=== PATIENT | female | born 1950 | race Caucasian/White ===

== ENCOUNTER 2016-10-16 08:04 | Emergency (ER) | payer OTHER ==
[2016-10-16 08:13] VITALS: BP 141/86; PULSE 99; TEMP 98.4; BMI 29.9
--- NOTE | 2016-10-16 09:20 | PDOC ---
History of Present Illness - General Chief Complaint: Pain Stated Complaint: PAIN Time Seen by Provider: 10/16/16 08:57 History Source: Patient Exam Limitations: No Limitations - History of Present Illness Initial Comments: This is a 66 yo female with h/o prior left-sided abdominal infection 4 years ago (Pt unsure what this diagnosis was), NIDDM (not on medication), and peptic ulcer disease who presents c/o two weeks of worsening constant left-sided abdominal pain which is worse in the left upper abdomen. She notes 10/10 pain which is worse when the area is palpated. It radiates to her left back and shoulder and worsens with walking or any movement. She states that this feels exactly like her prior abdominal infection, for which she had to be admitted for 5 days and received antibiotic therapy. She additionally notes recent chills , nausea, and dark stool (no black), and recent cough and sore throat. She denies any measured fever, diarrhea, new constipation, chest pain, shortness of breath, vaginal bleeding or discharge, or painful urination. The patient notes an adverse reaction to an antibiotic she took for the prior abdominal infection 4 years ago (headache), but she cannot remember what antibiotic it was. Past History - Past Medical History Allergies/Adverse Reactions: Allergies Allergy/AdvReac Type Severity Reaction Status Date / Time ciprofloxacin [From Cipro] Allergy Verified 10/16/16 08:10 ciprofloxacin HCl Allergy Verified 10/16/16 08:10 [From Cipro] levofloxacin [From Levaquin] Allergy Verified 10/16/16 08:10 metronidazole [From Flagyl] Allergy Verified 10/16/16 08:10 morphine Allergy Vomiting Verified 10/16/16 08:44 rifaximin [From Xifaxan] Allergy Verified 10/16/16 08:10 Home Medications: Ambulatory Orders Aspirin [ASA -] 81 mg PO DAILY 10/16/16 Famotidine [Pepcid] 20 mg PO BID PRN #20 tablet MDD 40 mg 10/16/16 Lisinopril [Zestril] 2.5 mg PO DAILY 10/16/16 Loratadine 10 mg PO DAILY 10/16/16 Omeprazole 20 mg PO DAILY 10/16/16 Pantoprazole Sodium [Protonix] 40 mg PO DAILY #10 tablet. MDD 40 mg 10/16/16 Simvastatin 20 mg PO HS 10/16/16 Anemia: No Asthma: No Cancer: No Cardiac Disorders: No CVA: No COPD: No CHF: No Dementia: No Diabetes: Yes GI Disorders: Yes (DIVERTICULITIS) Disorders: No HTN: No Hypercholesterolemia: Yes Liver Disease: No Suicide Attempt (Hx): No Seizures: No Thyroid Disease: No - Surgical History Abdominal Surgery: No Appendectomy: No Cardiac Surgery: No Cholecystectomy: No Lung Surgery: No Neurologic Surgery: No Orthopedic Surgery: No - Psycho/Social/Smoking Cessation Hx Anxiety: No Suicidal Ideation: No Smoking Status: No Smoking History: Never smoked Have you smoked in the past 12 months: No Number of Cigarettes Smoked Daily: 0 Hx Alcohol Use: No Drug/Substance Use Hx: No Substance Use Type: None Hx Substance Use Treatment: No Review of Systems - Review of Systems Able to Perform ROS?: Yes Constitutional: Yes: Chills. No: Fever, Unexplained wgt Loss HEENTM: Yes: Throat Pain. No: Nose Congestion Respiratory: Yes: Cough. No: Shortness of Breath Cardiac (ROS): No: Chest Pain, Palpitations ABD/GI: Yes: Constipated (per baseline, mild), Nausea, Other (abdominal pain). No: Diarrhea, Vomiting : No: Burning, Dysuria Musculoskeletal: Yes: Back Pain (right sided). No: Neck Pain Integumentary: No: Bruising, Rash Neurological: No: Headache, Numbness, Tingling, Weakness, Dizziness Endocrine: No: Unexplained Weight Gain, Unexplained Weight Loss *Physical Exam - Vital Signs Last Vital Signs Temp Pulse Resp BP Pulse Ox 98.4 F 99 H 20 141/86 97 10/16/16 08:05 10/16/16 08:05 10/16/16 08:05 10/16/16 08:05 10/16/16 08:05 ED Treatment Course - LABORATORY CBC & Chemistry Diagram: 10/16/16 10:13 10/16/16 10:13 *DC/Admit/Observation/Transfer Diagnosis at time of Disposition: Abdominal pain Qualifiers: Abdominal location: left upper quadrant Qualified Code(s): R10.12 - Left upper quadrant pain - Discharge Dispostion Disposition: HOME Condition at time of disposition: Stable Admit: No - Prescriptions Prescriptions: Famotidine [Pepcid] 20 mg PO BID PRN #20 tablet MDD 40 mg PRN Reason: Indigestion Pantoprazole Sodium [Protonix] 40 mg PO DAILY #10 tablet.dr [place] 40 mg - Patient Instructions Printed Discharge Instructions: DI for Abdominal Pain-Adult Additional Instructions: You were seen today for left abdominal pain. We gave you a medication called Toradol though the IV which helped with your pain. We also did laboratory studies on blood and urine, which were not concerning. We also did an abdomen/ pelvis CT scan which did not show any diverticulitis, kidney stones, or other problems within the abdomen. This is most likely a muscle sprain/strain, or maybe a nerve pain. Please follow up with your primary doctor regarding the MRI results for the study you had with him 3 weeks ago. Return to the ED for any further emergency complaints. Print Language: MALTESE - Attestations Physician Attestion: 10/16/16 12:50 I, Dr. Alka Perez, attest that this document has been prepared under my direction and personally reviewed by me in its entirety. I further attest, that it accurately reflects all work, treatment, procedures and medical decision -making performed by me.
[2016-10-16] MEDS ORDERED: ONDANSETRON 4 MG TABLET PO ONE (09:31)
[2016-10-16] MEDS ORDERED: SODIUM CHLORIDE 1,000 ML IV STA (09:31)
[2016-10-16] MEDS ORDERED: KETOROLAC TROMETHAMINE 30 MG/1 ML VIAL IVPUSH ONE (09:35)
[2016-10-16] MEDS ORDERED: ONDANSETRON 4 MG/2 ML VIAL ONE (10:17)
[2016-10-16] MEDS ORDERED: KETOROLAC TROMETHAMINE 30 MG/1 ML VIAL ONE (10:17)
[2016-10-16 10:45] LABS: BASOPHIL 0.9 % (0-2.0); EOSINOPHIL 1.9 % (0-4.5); MCH 30.1 pg (25.7-33.7); MCHC 33.5 g/dl (32.0-36.0); MEAN CELL VOLUME 89.7 fl (80-96); MEAN PLT VOLUME 9.2 fl (7.5-11.1); NEUTROPHILS 55.8 % (42.8-82.8); PLATELET COUNT 213 K/MM3 (134-434); RDW 14.3 % (11.6-15.6); WHITE BLOOD COUNT 6.3 K/mm3 (4.0-10.0)
--- NOTE | 2016-10-16 10:51 | PDOC ---
Attending Attestation - Resident Resident Name: Alka Perez - ED Attending Attestation I have performed the following: I have examined & evaluated the patient, The case was reviewed & discussed with the resident, I agree w/resident's findings & plan, Exceptions are as noted - HPI HPI: 10/16/16 10:49 66-year-old female with past medical history of hypertension, GERD, diverticulitis presents with left-sided abdominal pain for 2 weeks. Patient reports this is persistent pain and has associated nausea but denies fevers, diarrhea, dysuria. She reports that this feels exactly like her diverticulitis. - Physicial Exam PE: 10/16/16 10:50 GENERAL: Awake, alert, and fully oriented, in no acute distress. HEAD: No signs of trauma EYES: PERRLA, EOMI, sclera anicteric, conjunctiva clear ENT: Auricles normal inspection, hearing grossly normal, nares patent, oropharynx clear without exudates. NECK: Normal ROM, supple, no lymphadenopathy, JVD, or masses LUNGS: Breath sounds equal, clear to auscultation bilaterally. No wheezes, and no crackles HEART: Regular rate and rhythm, normal S1 and S2, no murmurs, rubs or gallops ABDOMEN: Soft, normoactive bowel sounds. No guarding, no rebound. No masses. TTP left mid abdomen. EXTREMITIES: Normal range of motion, no edema. No clubbing or cyanosis. No cords, erythema, or tenderness NEUROLOGICAL: Cranial nerves II through XII grossly intact. Normal speech, normal gait SKIN: Warm, Dry, normal turgor, no rashes or lesions noted. - Medical Decision Making 10/16/16 10:50 Vital Signs Temp Pulse Resp BP Pulse Ox 98.4 F 99 H 20 141/86 97 10/16/16 08:05 10/16/16 08:05 10/16/16 08:05 10/16/16 08:05 10/16/16 08:05 R/o diverticulitis. Labs, CT abdomen and pelvis, UA Pain control, IVF Reassess 10/16/16 12:43 CBC, BMP 10/16/16 10:13 10/16/16 10:13 CMP Sodium 140 mmol/L (136-145) 10/16/16 10:13 Potassium 4.6 mmol/L (3.5-5.1) 10/16/16 10:13 Chloride 107 mmol/L (98-107) 10/16/16 10:13 Carbon Dioxide 25 mmol/L (21-32) 10/16/16 10:13 Anion Gap 8 (8-16) 10/16/16 10:13 BUN 19 mg/dL (7-18) H D 10/16/16 10:13 Creatinine 0.9 mg/dL (0.55-1.02) D 10/16/16 10:13 Creat Clearance w eGFR > 60 (>60) 10/16/16 10:13 Random Glucose 107 mg/dL (74-106) H 10/16/16 10:13 Calcium 9.6 mg/dL (8.5-10.1) 10/16/16 10:13 Total Bilirubin 0.3 mg/dL (0.2-1.0) D 10/16/16 10:13 AST 14 U/L (15-37) L 10/16/16 10:13 ALT 46 U/L (12-78) 10/16/16 10:13 Alkaline Phosphatase 96 U/L (45-117) D 10/16/16 10:13 Troponin I < 0.02 ng/ml (0.00-0.05) 10/16/16 10:13 Total Protein 8.1 g/dl (6.4-8.2) 10/16/16 10:13 Albumin 4.1 g/dl (3.4-5.0) 10/16/16 10:13 Lipase 150 U/L (73-393) 10/16/16 10:13 CT and chest xray reviewed. No acute findings. Pt feels much better after GERD medications. Will treat as gastritis and have the patient follow up with her doctors.
[2016-10-16 10:59] LABS: INR 1.1 (0.82-1.09); PROTHROMBIN TIME (PATIENT) 12.1 SEC (9.98-11.88)
[2016-10-16 11:05] LABS: TROPONIN I < 0.02 ng/ml (0.00-0.05)
[2016-10-16 11:13] LABS: ALBUMIN 4.1 g/dl (3.4-5.0); ALK PHOS 96 U/L (45-117); ANION GAP 8 (8-16); BILIRUBIN,TOTAL 0.3 mg/dL (0.2-1.0); CALCIUM 9.6 mg/dL (8.5-10.1); CO2 25 mmol/L (21-32); CREATININE 0.9 mg/dL (0.55-1.02); GLUCOSE,RANDOM 107 mg/dL (74-106); SGOT/AST 14 U/L (15-37); SGPT/ALT 46 U/L (12-78); TOT PROT 8.1 g/dl (6.4-8.2)
--- NOTE | 2016-10-17 18:04 | EKG ---
Test Reason : Blood Pressure : / mmHG Vent. Rate : 072 BPM Atrial Rate : 072 BPM P-R Int : 158 ms QRS Dur : 090 ms QT Int : 412 ms P-R-T Axes : 060 -19 035 degrees QTc Int : 451 ms NORMAL SINUS RHYTHM RSR' OR QR PATTERN IN V1 SUGGESTS RIGHT VENTRICULAR CONDUCTION DELAY BORDERLINE ECG WHEN COMPARED WITH ECG OF 06-SEP-2011 06:23, CLINICAL CORRELATION IS RECOMMENDED Confirmed by LIDYA UP MD ([id number]) on 10/17/2016 6:03:43 PM Referred By: Confirmed By:LIDYA UP MD
== END 2016-10-16 13:33 | disposition home or self-care (01) ==
LOC: JER 08:04
PROC: 3E0333Z Introduction of Anti-inflammatory into Peripheral Vein, Percutaneous Approach (ICD-10-PCS; principal; 2016-10-16)
DX: R10.12 Left upper quadrant pain (principal)
CPT/HCPCS: 36415; 71010-TC; 74177-TC; 80053; 83690; 84484; 85025; 85610; 93005; 93010; 96374; 99283-25

== ENCOUNTER 2017-04-07 06:15 | Emergency (ER) | payer OTHER ==
[2017-04-07 06:28] VITALS: BMI 27.4
[2017-04-07] MEDS ORDERED: IBUPROFEN 400 MG TABLET (FP) PO ONE ×2 (10:02→10:06)
[2017-04-07] MEDS ORDERED: CYCLOBENZAPRINE HCL 10 MG TABLET (FP) PO ONE (10:23)
--- NOTE | 2017-04-07 10:25 | PDOC ---
History of Present Illness - General Chief Complaint: Back Pain Stated Complaint: PAIN Time Seen by Provider: 04/07/17 07:47 Past History - Past Medical History Allergies/Adverse Reactions: Allergies Allergy/AdvReac Type Severity Reaction Status Date / Time ciprofloxacin [From Cipro] Allergy Verified 04/07/17 06:27 ciprofloxacin HCl Allergy Verified 04/07/17 06:27 [From Cipro] levofloxacin [From Levaquin] Allergy Verified 04/07/17 06:27 metronidazole [From Flagyl] Allergy Verified 04/07/17 06:27 morphine Allergy Vomiting Verified 04/07/17 06:27 rifaximin [From Xifaxan] Allergy Verified 04/07/17 06:27 Home Medications: Ambulatory Orders Famotidine 20 mg PO DAILY 04/07/17 Lisinopril 5 mg PO DAILY 04/07/17 Saxagliptin HCl [Onglyza] 20 mg PO DAILY 04/07/17 Simvastatin 20 mg PO DAILY 04/07/17 Anemia: No Asthma: No Cancer: No Cardiac Disorders: No CVA: No COPD: No CHF: No Dementia: No Diabetes: Yes GI Disorders: Yes (DIVERTICULITIS) Disorders: No HTN: No Hypercholesterolemia: Yes Liver Disease: No Seizures: No Thyroid Disease: No - Surgical History Abdominal Surgery: No Appendectomy: No Cardiac Surgery: No Cholecystectomy: No Lung Surgery: No Neurologic Surgery: No Orthopedic Surgery: No - Immunization History Immunization Up to Date: Yes - Suicide/Smoking/Psychosocial Hx Smoking Status: No Smoking History: Never smoked Have you smoked in the past 12 months: No Number of Cigarettes Smoked Daily: 0 Information on smoking cessation initiated: No Hx Alcohol Use: No Drug/Substance Use Hx: No Substance Use Type: None Hx Substance Use Treatment: No *Physical Exam - Vital Signs Last Vital Signs Temp Pulse Resp BP Pulse Ox 97.6 F 89 20 127/77 98 04/07/17 06:27 04/07/17 06:27 04/07/17 06:27 04/07/17 06:27 04/07/17 06:27 *DC/Admit/Observation/Transfer - Referrals Referrals: Kelsie Lawrence [Primary Care Provider] - - Patient Instructions - Post Discharge Activity
--- NOTE | 2017-04-07 10:32 | PDOC ---
History of Present Illness - General Chief Complaint: Back Pain Stated Complaint: PAIN Time Seen by Provider: 04/07/17 07:47 - History of Present Illness Initial Comments: 04/07/17 10:27 The patient is a 66 year old female with a significant PMH of hypertension, GERD , diverticulitis, NIDDM, hyperlipidemia, and peptic ulcer disease who presents to the emergency department with lower back pain that began approximately three days ago. The patient states she was lifting her mom up from a fall and felt a "popping sound" in her lower back. The patient describes the lower back pain as constant and dull, radiating to the sides. The patient has tried excedrin for the pain with mild relief. The patient denies any weakness, numbness or tingling in the extremities. She denies urinary retention or incontinence. The patient denies chest pain, shortness of breath, headache and dizziness. Denies fever, chills, nausea, vomit, diarrhea and constipation. Denies dysuria, frequency, urgency and hematuria. Allergies: ciprofloxacin, levofloacin, metronidazole. Social history: No reported alcohol, drug, or cigarette use. PCP: Dr. Lawrence Past History - Past Medical History Allergies/Adverse Reactions: Allergies Allergy/AdvReac Type Severity Reaction Status Date / Time ciprofloxacin [From Cipro] Allergy Verified 04/07/17 06:27 ciprofloxacin HCl Allergy Verified 04/07/17 06:27 [From Cipro] levofloxacin [From Levaquin] Allergy Verified 04/07/17 06:27 metronidazole [From Flagyl] Allergy Verified 04/07/17 06:27 morphine Allergy Vomiting Verified 04/07/17 06:27 rifaximin [From Xifaxan] Allergy Verified 04/07/17 06:27 Home Medications: Ambulatory Orders Famotidine 20 mg PO DAILY 04/07/17 Lisinopril 5 mg PO DAILY 04/07/17 Saxagliptin HCl [Onglyza] 20 mg PO DAILY 04/07/17 Simvastatin 20 mg PO DAILY 04/07/17 Anemia: No Asthma: No Cancer: No Cardiac Disorders: No CVA: No COPD: No CHF: No Dementia: No Diabetes: Yes GI Disorders: Yes (DIVERTICULITIS) Disorders: No HTN: No Hypercholesterolemia: Yes Liver Disease: No Seizures: No Thyroid Disease: No - Surgical History Abdominal Surgery: No Appendectomy: No Cardiac Surgery: No Cholecystectomy: No Lung Surgery: No Neurologic Surgery: No Orthopedic Surgery: No - Immunization History Immunization Up to Date: Yes - Suicide/Smoking/Psychosocial Hx Smoking Status: No Smoking History: Never smoked Have you smoked in the past 12 months: No Number of Cigarettes Smoked Daily: 0 Information on smoking cessation initiated: No Hx Alcohol Use: No Drug/Substance Use Hx: No Substance Use Type: None Hx Substance Use Treatment: No Review of Systems - Review of Systems Comments:: 04/07/17 10:28 GENERAL/CONSTITUTIONAL: No fever or chills. No weakness. HEAD, EYES, EARS, NOSE AND THROAT: No change in vision. No ear pain or discharge. No sore throat. GASTROINTESTINAL: No nausea, vomiting, diarrhea or constipation. GENITOURINARY: No dysuria, frequency, or change in urination. CARDIOVASCULAR: No chest pain or shortness of breath. RESPIRATORY: No cough, wheezing, or hemoptysis. MUSCULOSKELETAL: (+) Lower back pain. No joint or muscle swelling or pain. No neck pain. SKIN: No rash NEUROLOGIC: No headache, vertigo, loss of consciousness, or change in strength/ sensation. ENDOCRINE: No increased thirst. No abnormal weight change. HEMATOLOGIC/LYMPHATIC: No anemia, easy bleeding, or history of blood clots. ALLERGIC/IMMUNOLOGIC: No hives or skin allergy. *Physical Exam - Vital Signs Last Vital Signs Temp Pulse Resp BP Pulse Ox 97.6 F 89 20 127/77 98 04/07/17 06:27 04/07/17 06:27 04/07/17 06:27 04/07/17 06:27 04/07/17 06:27 - Physical Exam Comments: 04/07/17 10:29 GENERAL: Awake, alert, and fully oriented, in no acute distress HEAD: No signs of trauma EYES: PERRLA, EOMI, sclera anicteric, conjunctiva clear ENT: Auricles normal inspection, hearing grossly normal, nares patent, oropharynx clear without exudates. Moist mucosa NECK: Normal ROM, supple, no lymphadenopathy, JVD, or masses LUNGS: Breath sounds equal, clear to auscultation bilaterally. No wheezes, and no crackles HEART: Regular rate and rhythm, normal S1 and S2, no murmurs, rubs or gallops ABDOMEN: Soft, nontender, normoactive bowel sounds. No guarding, no rebound. No masses EXTREMITIES: Normal range of motion, no edema. No clubbing or cyanosis. No cords, erythema, or tenderness BACK: (+) Mild lumbar paraspinal tenderness b/l. No midline cervical, thoracic, lumbar ttp NEUROLOGICAL: Normal speech, cranial nerves intact, negative pronator drift, 5/ 5 strength in all 4 extremities, normal sensation to light touch in all 4 extremities, normal cerebellar exam, antalgic but steady gait, normal reflexes and tone SKIN: Warm, Dry, normal turgor, no rashes or lesions noted. ED Treatment Course - Medications Given in the ED: ED Medications Discontinued Medications Generic Name Dose Route Start Last Admin Trade Name Giovanna PRN Reason Stop Dose Admin Ibuprofen 800 mg 04/07/17 10:02 04/07/17 10:05 Motrin - PO 04/07/17 10:03 800 mg ONCE ONE Administration Medical Decision Making - Medical Decision Making 04/07/17 09:55 66-year-old female presents with low back pain after straining to sampler pickup her mother off of the floor 3 days ago. Vitals are unremarkable. Exam with lumbar paraspinal tenderness palpation consistent with muscle strain. Patient may have also herniated a disc but has no red flag signs of urinary retention or incontinence, and has a normal neurologic exam. Patient was given 800 mg of ibuprofen and Flexeril, will reassess. 04/07/17 10:34 Patient reports improvement in back pain and requests discharge home. Advised patient to follow up with her primary care doctor for possible physical therapy referral. He will return precautions if she develops any lower extremity weakness or numbness or has difficulty urinating. I discussed the physical exam findings, ancillary test results and final diagnoses with the patient. I answered all of the patient's questions. The patient was satisfied with the care received and felt comfortable with the discharge plan and treatment plan. The patient will call their primary care physician within 24 hours to arrange follow-up and will return to the Emergency Department with any new, persistent or worsening symptoms. *DC/Admit/Observation/Transfer Diagnosis at time of Disposition: Back pain - Discharge Dispostion Disposition: HOME Condition at time of disposition: Stable Admit: No - Referrals Referrals: Kelsie Lawrence [Primary Care Provider] - - Patient Instructions Printed Discharge Instructions: Low Back Pain Additional Instructions: Follow-up with Dr. Lawrence next week as discussed. Take medications as prescribed. Return to the emergency department if you have any new, worsening or concerning symptoms such as leg weakness/numbness or difficulty urinating. Print Language: [id number] - Post Discharge Activity - Attestations Physician Attestion: 04/07/17 10:37 I, Dr. Lindsey Chavarria MD, attest that this document has been prepared under my direction and personally reviewed by me in its entirety. I further attest, that it accurately reflects all work, treatment, procedures and medical decision -making performed by me.
[2017-04-07] MEDS ORDERED: CYCLOBENZAPRINE HCL 10 MG TABLET (FP) ONE (10:42)
[2017-04-07 11:05] VITALS: BP 115/74; PULSE 73; TEMP 97.8
== END 2017-04-07 11:12 | disposition home or self-care (01) ==
LOC: JER 06:15
DX: S39.012A Strain of muscle, fascia and tendon of lower back, initial encounter (principal); X50.0XXA Overexertion from strenuous movement or load, initial encounter; X50.9XXA Other and unspecified overexertion or strenuous movements or postures, initial encounter; Y93.F2 Activity, caregiving, lifting; Y92.038 Other place in apartment as the place of occurrence of the external cause; Y99.8 Other external cause status; I10 Essential (primary) hypertension; E11.9 Type 2 diabetes mellitus without complications; Z79.84 Long term (current) use of oral hypoglycemic drugs; K21.9 Gastro-esophageal reflux disease without esophagitis; E78.5 Hyperlipidemia, unspecified; K27.6 Chronic or unspecified peptic ulcer, site unspecified, with both hemorrhage and perforation
CPT/HCPCS: 99282-25

== ENCOUNTER 2021-04-02 09:44 | Observation (INO) | payer OTHER ==
[2021-04-02 09:49] VITALS: BMI 31.8
[2021-04-02] MEDS ORDERED: SODIUM CHLORIDE 0.9% 500 ML INFUS.BAG IV ONE (11:18)
[2021-04-02] MEDS ORDERED: ACETAMINOPHEN 1000 MG/100 ML BAG IVPB ONE (11:18)
[2021-04-02 11:46] LABS: BASO % 0.7 % (0-2.0); EOS % 1.2 % (0-4.5); HEMATOCRIT 42.4 % (32.4-45.2); HEMOGLOBIN 14.4 GM/dL (10.7-15.3); LYMPH % 29.8 % (8-40); MCHC 33.8 g/dl (32.0-36.0); MEAN CELL VOLUME 88.7 fl (80-96); MEAN PLT VOLUME 8.2 fl (7.5-11.1); MONO % 6.8 % (3.8-10.2); NEUT % 61.5 % (42.8-82.8); PLATELET COUNT 273 10^3/uL (134-434); RBC 4.78 M/mm3 (3.60-5.2); RDW 14.1 % (11.6-15.6); WHITE BLOOD COUNT 6.7 K/mm3 (4.0-10.0)
[2021-04-02 12:03] LABS: CHLORIDE 106 mmol/L (98-107); SODIUM 138 mmol/L (136-145)
[2021-04-02 12:06] LABS: ALBUMIN 4.1 g/dl (3.4-5.0); ANION GAP 9 MMOL/L (8-16); BLOOD UREA NITROGEN 24.2 mg/dL (7-18); CALCIUM 10.1 mg/dL (8.5-10.1); CO2 23 mmol/L (21-32); GLUCOSE,RANDOM 120 mg/dL (74-106); LIPASE 529 U/L (73-393)
[2021-04-02 12:09] LABS: CREATININE 1.4 mg/dL (0.55-1.3); SGOT/AST 11 U/L (15-37); SGPT/ALT 46 U/L (13-61)
[2021-04-02 12:11] LABS: BILIRUBIN,TOTAL 0.4 mg/dL (0.2-1); TOT PROT 8.2 g/dl (6.4-8.2)
[2021-04-02 12:12] LABS: ALK PHOS 99 U/L (45-117)
[2021-04-02 13:16] LABS: EPI CELLS 20 /uL (0-25.1); HYALINE CASTS 1 /uL (0-3.1); URINE APPEARANCE CLEAR; URINE BACTERIA 44 /uL (0-1359); URINE BILIRUBIN NEGATIVE (NEGATIVE); URINE COLOR YELLOW; URINE GLUCOSE (UA) NEGATIVE (NEGATIVE); URINE KETONE NEGATIVE (NEGATIVE); URINE LEUK ESTERASE NEGATIVE (NEGATIVE); URINE NITRITE NEGATIVE (NEGATIVE); URINE PROTEIN 1+ (NEGATIVE); URINE RBC 12 /uL (0-23.9); URINE UROBILINOGEN 0.2 mg/dL (0.2-1.0); URINE WBC 12 /uL (0-25.8)
[2021-04-02] MEDS ORDERED: SODIUM CHLORIDE 1,000 ML IV SCH (17:30)
[2021-04-02] MEDS ORDERED: TRIMETHOBENZAMIDE HCL 300 MG CAPSULE PO ONE (22:58)
[2021-04-02] MEDS ORDERED: MELATONIN 5 MG TABLETS PO ONE (22:59)
[2021-04-03] MEDS: LOSARTAN POTASSIUM 50 MG TABLET PO SCH (09:03)
[2021-04-03] MEDS: FAMOTIDINE 20 MG TABLET PO SCH (09:04)
[2021-04-03] MEDS: PANTOPRAZOLE 20 MG TABLET PO SCH (09:04)
[2021-04-03] MEDS ORDERED: ONDANSETRON 4 MG/2 ML VIAL IVPUSH PRN (09:15)
[2021-04-03] MEDS: EZETIMIBE 10 MG TABLET (FP) PO SCH (10:22)
[2021-04-03] MEDS: LIDOCAINE 5% TOPICAL PATCH TP SCH (11:25)
[2021-04-03] MEDS: INSULIN SLIDING SCALE (NOVOLOG) 1 VIAL SQ SCH ×3 (11:31→22:45)
[2021-04-03 13:26] LABS: HEMATOCRIT 38.5 % (32.4-45.2); HEMOGLOBIN 12.7 GM/dL (10.7-15.3); RBC 4.28 M/mm3 (3.60-5.2); WHITE BLOOD COUNT 5.6 K/mm3 (4.0-10.0)
[2021-04-03 13:27] LABS: BASO % 0.7 % (0-2.0); EOS % 1.7 % (0-4.5); LYMPH % 31.5 % (8-40); MCH 29.6 pg (25.7-33.7); MCHC 32.9 g/dl (32.0-36.0); MEAN PLT VOLUME 8.5 fl (7.5-11.1); MONO % 6.4 % (3.8-10.2); NEUT % 59.7 % (42.8-82.8); PLATELET COUNT 268 10^3/uL (134-434); RDW 13.7 % (11.6-15.6)
[2021-04-03 13:52] LABS: BLOOD UREA NITROGEN 18.8 mg/dL (7-18); CALCIUM 9.6 mg/dL (8.5-10.1)
[2021-04-03 13:53] LABS: ALBUMIN 3.6 g/dl (3.4-5.0); MAGNESIUM 1.9 mg/dL (1.8-2.4)
[2021-04-03 13:56] LABS: CREATININE 1.2 mg/dL (0.55-1.3)
[2021-04-03 13:57] LABS: BILIRUBIN,TOTAL 0.4 mg/dL (0.2-1); TOT PROT 7.2 g/dl (6.4-8.2)
[2021-04-03] MEDS ORDERED: SODIUM CHLORIDE 0.45% 1,000 ML IV SCH (17:30)
[2021-04-03] MEDS ORDERED: LIDOCAINE PATCH REMOVAL MC SCH (22:00)
[2021-04-04] MEDS: INSULIN SLIDING SCALE (NOVOLOG) 1 VIAL SQ SCH ×2 (06:33→11:01)
[2021-04-04] MEDS: FAMOTIDINE 20 MG TABLET PO SCH (09:43)
[2021-04-04] MEDS: PANTOPRAZOLE 20 MG TABLET PO SCH (09:43)
[2021-04-04] MEDS: EZETIMIBE 10 MG TABLET (FP) PO SCH (09:43)
[2021-04-04] MEDS: LOSARTAN POTASSIUM 50 MG TABLET PO SCH (09:44)
[2021-04-04] MEDS: LIDOCAINE 5% TOPICAL PATCH TP SCH (10:21)
[2021-04-04 10:37] VITALS: BP 138/68; PULSE 84; TEMP 98.4
[2021-04-04 10:46] LABS: BASO % 0.8 % (0-2.0); EOS % 1.9 % (0-4.5); HEMOGLOBIN 12.8 GM/dL (10.7-15.3); MCH 30.3 pg (25.7-33.7); MCHC 33.6 g/dl (32.0-36.0); MEAN CELL VOLUME 90.4 fl (80-96); MEAN PLT VOLUME 8.6 fl (7.5-11.1); MONO % 6.4 % (3.8-10.2); NEUT % 52.9 % (42.8-82.8); PLATELET COUNT 257 10^3/uL (134-434); RDW 13.7 % (11.6-15.6); WHITE BLOOD COUNT 5.6 K/mm3 (4.0-10.0)
[2021-04-04 11:08] LABS: ALBUMIN 3.7 g/dl (3.4-5.0); BLOOD UREA NITROGEN 19.2 mg/dL (7-18); CALCIUM 9.3 mg/dL (8.5-10.1); MAGNESIUM 1.8 mg/dL (1.8-2.4)
[2021-04-04 11:10] LABS: CREATININE 1.3 mg/dL (0.55-1.3)
[2021-04-04 11:12] LABS: BILIRUBIN,TOTAL 0.6 mg/dL (0.2-1); TOT PROT 7.3 g/dl (6.4-8.2)
== END 2021-04-04 13:10 | disposition home or self-care (01) ==
LOC: JER 09:44 → INTOOBSV 15:08 → UNDOADMOB 15:08 → JERBED 15:08 → J6WEST-2 21:38
PROVIDERS: ADMIT Internal Medicine; ATTEND Internal Medicine
PROC: 3E033NZ Introduction of Analgesics, Hypnotics, Sedatives into Peripheral Vein, Percutaneous Approach (ICD-10-PCS; principal; 2021-04-02)
PROC: 3E033GC Introduction of Other Therapeutic Substance into Peripheral Vein, Percutaneous Approach (ICD-10-PCS; 2021-04-02)
PROC: 3E0337Z Introduction of Electrolytic and Water Balance Substance into Peripheral Vein, Percutaneous Approach (ICD-10-PCS; 2021-04-02)
DX: I12.9 Hypertensive chronic kidney disease with stage 1 through stage 4 chronic kidney disease, or unspecified chronic kidney disease (principal); S32.040A Wedge compression fracture of fourth lumbar vertebra, initial encounter for closed fracture; E11.22 Type 2 diabetes mellitus with diabetic chronic kidney disease; N18.9 Chronic kidney disease, unspecified; R10.31 Right lower quadrant pain; E78.5 Hyperlipidemia, unspecified; K21.9 Gastro-esophageal reflux disease without esophagitis; K27.9 Peptic ulcer, site unspecified, unspecified as acute or chronic, without hemorrhage or perforation; Z29.9 Encounter for prophylactic measures, unspecified; Z88.8 Allergy status to other drugs, medicaments and biological substances; E66.9 Obesity, unspecified; Z68.31 Body mass index [BMI] 31.0-31.9, adult; I45.10 Unspecified right bundle-branch block; R79.89 Other specified abnormal findings of blood chemistry; N17.9 Acute kidney failure, unspecified; R80.9 Proteinuria, unspecified; W18.39XA Other fall on same level, initial encounter; Y93.89 Activity, other specified; Y92.89 Other specified places as the place of occurrence of the external cause
CPT/HCPCS: 36415; 74177-TC; 76775-TC; 80053; 81003; 82550; 82570; 82962; 83605; 83690; 83735; 83935; 84300; 84484; 85025; 87086; 93005; 93010; 96361; 96374; 96375; 97116-GP; 97161-GP; 99285-25; C9803; G0378; J0131; Q9967; U0003; U0005

== ENCOUNTER 2023-07-28 04:17 | Day surgery (SDC) | payer OTHER ==
[2023-07-26 15:51] VITALS: BMI 27.9
[2023-07-28 07:17] VITALS: RESP 18
[2023-07-28 08:22] VITALS: TEMP 97.8
[2023-07-28 09:02] VITALS: BP 124/70; PULSE 74
== END 2023-07-28 09:00 | disposition home or self-care (01) ==
LOC: JASU-ENDO 04:17
PROVIDERS: ATTEND Internal Medicine Gastroenterology
PROC: 0DB68ZX Excision of Stomach, Via Natural or Artificial Opening Endoscopic, Diagnostic (ICD-10-PCS; 2023-07-28)
PROC: 0DBL8ZX Excision of Transverse Colon, Via Natural or Artificial Opening Endoscopic, Diagnostic (ICD-10-PCS; principal; 2023-07-28 08:15)
DX: Z12.11 Encounter for screening for malignant neoplasm of colon (principal); K57.30 Diverticulosis of large intestine without perforation or abscess without bleeding; D12.3 Benign neoplasm of transverse colon; K64.8 Other hemorrhoids; Z86.010 Personal history of colon polyps; K29.50 Unspecified chronic gastritis without bleeding
CPT/HCPCS: 82962; 88305-TC; 88342-TC

== ENCOUNTER 2023-11-16 05:55 | Emergency (ER) | payer OTHER ==
[2023-11-16 06:42] VITALS: RESP 18; TEMP 98.4; BMI 27.8
[2023-11-16] MEDS ORDERED: ACETAMINOPHEN INJECTION 100 ML ONE (07:37)
[2023-11-16] MEDS ORDERED: FAMOTIDINE 20 MG/50 ML IVPB 20 MG/50 ML MG IVPB ONE (07:37)
[2023-11-16] MEDS ORDERED: ONDANSETRON 4 MG/2 ML VIAL ONE (07:37)
[2023-11-16 08:11] LABS: BASO % 0.8 % (0-2.0); EOS % 2.2 % (0-4.5); HEMATOCRIT 39.3 % (32.4-45.2); HEMOGLOBIN 13.2 GM/dL (10.7-15.3); LYMPH % 26.3 % (8-40); MCH 30.5 pg (25.7-33.7); MCHC 33.6 g/dl (32.0-36.0); MEAN CELL VOLUME 90.8 fl (80-96); MEAN PLT VOLUME 8.9 fl (7.5-11.1); MONO % 6.5 % (3.8-10.2); NEUT % 64.2 % (42.8-82.8); PLATELET COUNT 271 10^3/uL (134-434); RBC 4.33 M/mm3 (3.60-5.2); RDW 13.9 % (11.6-15.6); WHITE BLOOD COUNT 5.8 K/mm3 (4.0-10.0)
[2023-11-16] MEDS: SODIUM CHLORIDE 0.9% 500 ML INFUS.BAG IV ONE (08:13)
[2023-11-16] MEDS: ACETAMINOPHEN 1000 MG/100 ML BAG IVPB ONE (08:14)
[2023-11-16] MEDS: FAMOTIDINE 20 MG/50 ML IVPB 20 MG/50 ML MG IVPB ONE (08:14)
[2023-11-16] MEDS: ONDANSETRON 4 MG/2 ML VIAL IVPUSH ONE (08:14)
[2023-11-16 08:38] LABS: PH,URINE 5.5 (5.0-8.0); URINE APPEARANCE CLEAR; URINE BILIRUBIN NEGATIVE (NEGATIVE); URINE COLOR YELLOW; URINE GLUCOSE (UA) NEGATIVE (NEGATIVE); URINE KETONE NEGATIVE (NEGATIVE); URINE LEUK ESTERASE NEGATIVE (NEGATIVE); URINE NITRITE NEGATIVE (NEGATIVE); URINE PROTEIN NEGATIVE (NEGATIVE); URINE UROBILINOGEN 0.2 mg/dL (0.2-1.0)
[2023-11-16 08:43] LABS: POTASSIUM 4.8 mmol/L (3.5-5.1)
[2023-11-16 08:45] LABS: ALBUMIN 3.9 g/dl (3.4-5.0); BLOOD UREA NITROGEN 37.1 mg/dL (7-18)
[2023-11-16 08:48] LABS: CREATININE 1.9 mg/dL (0.55-1.3)
[2023-11-16 08:50] LABS: BILIRUBIN,TOTAL 0.4 mg/dL (0.2-1); TOT PROT 7.7 g/dl (6.4-8.2)
[2023-11-16 11:24] VITALS: BP 135/68; PULSE 72
== END 2023-11-16 11:30 | disposition home or self-care (01) ==
LOC: JER 05:55
PROC: 3E033GC Introduction of Other Therapeutic Substance into Peripheral Vein, Percutaneous Approach (ICD-10-PCS; principal; 2023-11-16)
PROC: 3E033NZ Introduction of Analgesics, Hypnotics, Sedatives into Peripheral Vein, Percutaneous Approach (ICD-10-PCS; 2023-11-16)
DX: R10.84 Generalized abdominal pain (principal); R11.0 Nausea
CPT/HCPCS: 36415; 71046-TC-FY; 76700-TC; 80053; 81003; 83690; 85025; 87086; 93005; 93010; 99285-25; J0131

== ENCOUNTER 2024-04-25 04:40 | Day surgery (SDC) | payer OTHER ==
[2024-04-20 11:17] VITALS: BMI 28.9
[2024-04-25 08:38] LABS: INR 1.1 (0.83-1.09); PROTHROMBIN TIME (PATIENT) 12.1 SEC (9.7-13.0)
[2024-04-25 08:48] LABS: BASO % 0.8 % (0-2.0); EOS % 2.2 % (0-4.5); HEMATOCRIT 38.1 % (32.4-45.2); HEMOGLOBIN 12.7 GM/dL (10.7-15.3); LYMPH % 27.6 % (8-40); MCH 30.3 pg (25.7-33.7); MCHC 33.4 g/dl (32.0-36.0); MEAN CELL VOLUME 90.7 fl (80-96); MEAN PLT VOLUME 8.5 fl (7.5-11.1); MONO % 7.2 % (3.8-10.2); NEUT % 62.2 % (42.8-82.8); PLATELET COUNT 298 10^3/uL (134-434); RDW 14.2 % (11.6-15.6); WHITE BLOOD COUNT 6.2 K/mm3 (4.0-10.0)
[2024-04-25] MEDS ORDERED: FENTANYL CITRATE/PF 50 MCG/ML VIAL ONE ×3 (09:59→15:29)
[2024-04-25] MEDS ORDERED: MIDAZOLAM HCL 2 MG/2 ML SINGLE DOSE VIAL ONE (09:59)
[2024-04-25] MEDS: SODIUM CHLORIDE 500 ML IV ONE (10:20)
[2024-04-25] MEDS ORDERED: SODIUM CHLORIDE 500 ML IV SCH (10:20)
[2024-04-25] MEDS ORDERED: MIDAZOLAM HCL 2 MG/2 ML SINGLE DOSE VIAL IVPUSH ONE ×2 (10:22→10:34)
[2024-04-25] MEDS ORDERED: FENTANYL CITRATE/PF 50 MCG/ML VIAL IVPUSH ONE ×2 (10:22→10:34)
[2024-04-25] MEDS: MIDAZOLAM HCL 2 MG/2 ML SINGLE DOSE VIAL IVPUSH ONE ×2 (10:22→10:34)
[2024-04-25] MEDS: FENTANYL CITRATE/PF 50 MCG/ML VIAL IVPUSH ONE ×5 (10:22→17:29)
[2024-04-25] MEDS ORDERED: ACETAMINOPHEN 500 MG TABLET (FP) PO ONE (11:40)
[2024-04-25] MEDS ORDERED: ACETAMINOPHEN 500 MG TABLET (FP) ONE (11:45)
[2024-04-25] MEDS: ACETAMINOPHEN 500 MG TABLET (FP) PO ONE (11:45)
[2024-04-25 14:13] VITALS: TEMP 98
[2024-04-25] MEDS: ACETAMINOPHEN 1000 MG/100 ML BAG IVPB ONE (14:58)
[2024-04-25] MEDS ORDERED: ONDANSETRON 4 MG/2 ML VIAL ONE (15:41)
[2024-04-25] MEDS: ONDANSETRON 4 MG/2 ML VIAL IVPUSH ONE ×2 (15:43→17:29)
[2024-04-25 15:58] VITALS: RESP 14
[2024-04-25 16:19] VITALS: BP 145/79; PULSE 84
[2024-04-25] MEDS ORDERED: ACETAMINOPHEN INJECTION 100 ML ONE (16:54)
== END 2024-04-25 17:25 | disposition home or self-care (01) ==
LOC: JRADIR 04:40
PROVIDERS: ATTEND Internal Medicine
PROC: 0TB13ZX Excision of Left Kidney, Percutaneous Approach, Diagnostic (ICD-10-PCS; principal; 2024-04-25)
PROC: B417YZZ Fluoroscopy of Left Renal Artery using Other Contrast (ICD-10-PCS; 2024-04-25)
PROC: 04LA3DZ Occlusion of Left Renal Artery with Intraluminal Device, Percutaneous Approach (ICD-10-PCS; 2024-04-25)
DX: I12.9 Hypertensive chronic kidney disease with stage 1 through stage 4 chronic kidney disease, or unspecified chronic kidney disease (principal); E11.22 Type 2 diabetes mellitus with diabetic chronic kidney disease; N18.9 Chronic kidney disease, unspecified
CPT/HCPCS: 36253; 37242; 37252; 50200; 76942; C1885; 36415; 37244; 74174-TC; 75726-TC; 82962; 85025; 85610; 88300-TC; 88329; C1887; J0131; Q9967